=== PATIENT | male | born 1955 | race Caucasian/White ===

== ENCOUNTER → 2020-09-13 | Outpatient (CLI) | payer MEDICARE, OTHER ==
[2014-06-24 14:01] VITALS: BP 175/94
[~2020-09-13] MED LIST: ASPI-889 PO; ATEN25TA42 PO; CALC-474 PO; DIPH25CA58 PO; ESOM40CA PO; FAMO20TA5 PO; IBUP400T18 PO; LEVO25TA55 PO; LISI2.5T PO; PRED5TAB19 PO
--- NOTE | 2020-09-13 17:40 | RAD ---
Three-view right ankle dated 09/13/2020. No comparison available. Clinical data indication: Pain and swelling. FINDINGS: 3 views the right ankle show normal bony alignment. No displaced fracture. Corticated bone fragment s een distal to the tip of the fibula and the tip of the medial malleolus. Mild soft tissue swelling. S mall osteochondral defect at the medial talar dome measures about 7 mm. Is a possible small ankle elle nt effusion. IMPRESSION: 1. No evidence of displaced fracture. 2. Small osteochondral defect of the talar dome, age indeterminate. 3. There is some bony fragmentation at the tip of the distal fibula and tip of medial malleolus that likely represent remote avulsion injuries. Given the presence of soft tissue swelling, acute ligament ous injury cannot be excluded. 4. Suspect small tibiotalar joint effusion. Electronically signed by: Armand Ramsey MD (09/13/2020 5:38 PM) [facility]
== END ==
LOC: DXRAD 17:18
PROVIDERS: ATTEND Nurse Practitioner Family
DX: M21.6X1 Other acquired deformities of right foot (principal); M79.89 Other specified soft tissue disorders; M25.471 Effusion, right ankle
CPT/HCPCS: 73610

== ENCOUNTER → 2020-12-29 | Outpatient (CLI) | payer MEDICARE, OTHER ==
[2014-06-24 14:01] VITALS: BP 175/94
[~2020-12-29] MED LIST changes: -LISI2.5T PO; +LISI2.5T12 PO
--- NOTE | 2020-12-29 13:14 | RAD ---
EXAM: Right knee, 3 views HISTORY: Right knee pain, effusion. COMPARISON: None. FINDINGS: No fractures are identified. The medial compartmental joint space is mostly effaced. The lateral and patellofemoral compartmental joint spaces are preserved. Meniscal chondrocalcinosis is noted. Alignme nt is normal. There is no joint effusion. IMPRESSION: 1. Moderate to severe medial compartmental osteoarthritis. 2. Chondrocalcinosis of the menisci is usually a senescent finding. Correlate clinically to exclude d eposition diseases such as CPPD. Electronically signed by: Anna Moran MD (12/29/2020 1:11 PM) [facility]
== END ==
LOC: PMG 12:39
PROVIDERS: ATTEND Physician Assistant
DX: M11.261 Other chondrocalcinosis, right knee (principal); M17.11 Unilateral primary osteoarthritis, right knee; M25.461 Effusion, right knee
CPT/HCPCS: 73562